=== PATIENT | female | born 1965 | race Caucasian/White ===

== ENCOUNTER 2018-05-20 08:37 | Day surgery (SDC) | payer OTHER ==
[~2018-05-20 08:37] MED LIST: HYDROmorphone 2 MG/ML VIAL IV PRN; IV RINGERS,LACTATED 1000ML 1,000 ML IV SCH; LIDOCAINE 1% PF 2 ML VIAL. ID PRN; MORPHINE SULFATE 2 MG/ML VIAL. IV PRN; ONDANSETRON PF 4 MG/2 ML VIAL. IV PRN; PROCHLORPERAZINE 10 MG/2 ML VIAL. IV PRN; TRAM50TA PO; fentaNYL PF VIAL 100 MCG/2 ML VIAL IV PRN
[2018-05-20] MEDS ORDERED: PROPOFOL 20 ML IV ONE (08:48)
[2018-05-20] MEDS ORDERED: ONDANSETRON PF 4 MG/2 ML VIAL. ONE (08:49)
[2018-05-20] MEDS ORDERED: LIDOCAINE 2% PF 5 ML VIAL. ONE (08:49)
[2018-05-20] MEDS ORDERED: fentaNYL PF VIAL 250 MCG/5 ML VIAL ONE (08:50)
[2018-05-20] MEDS ORDERED: MIDAZOLAM HCL/PF 2 MG/2 ML VIAL. ONE (08:50)
--- NOTE | 2018-05-20 10:27 | DISCH ---
DISCHARGE INSTRUCTIONS Condition on Discharge Condition on Discharge: Stable Activity After Discharge Activity Instructions for Disc: Activity as tolerated Weight Bearing Status after Di: As tolerated Diet after Discharge Diet after Discharge: Regular Wound Incision Care Wound/Incision Care: Ice to area for comfort, Change dressing (May remove dressing in 2 days may then shower no soaking until sutures removed) Contacting the DRRenaldo after DC Call your doctor for: Concerns you may have Follow-Up Follow up with: Kristin 10 days BONNIE SHORT MD May 20, 2018 10:27
[2018-05-20] MEDS ORDERED: HYDR-3165 PO (10:28)
[2018-05-20] MEDS ORDERED: BUPIVAC MPF-EPI 0.5%-1:200000 30 ML VIAL. ONE (10:37)
[2018-05-20] MEDS ORDERED: SEVOFLURANE 61 TO 120 MINUTES. IH ONE (11:27)
[2018-05-20] MEDS ORDERED: KETOROLAC 30 MG/ML INJ FOR OR. INJ ONE (11:29)
[2018-05-20] MEDS ORDERED: HYDROcodone/APAP 7.5/325MG 1 TAB TABLET PO ONE (12:15)
--- NOTE | 2018-05-20 12:22 | PDOC4 ---
Operative Note Operative Note Date of surgery: 05/20/2018 Preoperative diagnosis: Medial meniscus tear Postoperative diagnosis: Same with chondral flap tear medial femoral condyle and free edge fraying anterior horn and body lateral meniscus Operative procedure: Right knee arthroscopy partial medial meniscectomy partial lateral meniscectomy and chondroplasty of medial femoral condyle Surgeon: Kristin Anesthesia: Gen. Estimated blood loss: 5 mL Complications: None Operative indications: Patient is a 52-year-old female with pain intermittent but severe with aggravating activities such as twisting and squatting in particular MRI had shown medial meniscus tear consistent with clinical suspicion I had gone over with her the risks benefits postoperative course of possible operative treatment of this and the rationale for healing anatomy and blood supply of the medial meniscus the fact that I cannot do anything about her degenerative changes present and those ongoing symptoms would have to be dealt with symptomatically. All her questions were answered she wishes to proceed with surgical evaluation and treatment. Operative text: Patient was identified procedure verified patient placed in the supine position on operating table. After adequate amounts of general anesthesia were administered the right lower extremity was prepped and draped with a thigh tourniquet area after timeout was performed patient procedure identified and verified the right leg was examined by Esmarch bandage tourniquet inflated to 250 mmHg a lateral portal was established medial portal established using spinal needle localization and the knee joint was systematically examined. She was noted to have some patellofemoral chondromalacia that did not require debridement she had good tracking of the patellofemoral joint no loose bodies noted in the gutters or suprapatellar pouch she did have a displaceable tear posterior horn of the medial meniscus and a chondral flap tear of the weightbearing surface of the medial femoral condyle adjacent to the meniscal tear which was trimmed back to stable tissue with arthroscopic shaver. ACL was probed and found to be intact lateral meniscus had a small free edge tear which was trimmed back to stable tissue. The knee was again toured to ensure no loose cartilage present and was drained of arthroscopic fluid portals closed with nylon suture sterile dressings applied she was returned recovery room in stable condition having tolerated procedure well BONNIE SHORT MD May 20, 2018 12:22
[2018-05-20 12:33] VITALS: BP 115/62
== END 2018-05-20 12:33 | disposition home or self-care (01) ==
LOC: SURG 08:37
PROVIDERS: ATTEND Orthopaedic Surgery
DX: S83.241A Other tear of medial meniscus, current injury, right knee, initial encounter (principal); S83.281A Other tear of lateral meniscus, current injury, right knee, initial encounter; M22.41 Chondromalacia patellae, right knee; X50.1XXA Overexertion from prolonged static or awkward postures, initial encounter; Y93.89 Activity, other specified; Y92.89 Other specified places as the place of occurrence of the external cause; Y99.8 Other external cause status; Z79.899 Other long term (current) drug therapy
CPT/HCPCS: 29880; A7015; C1782; J0690; J1885; J2001; J2250; J2405; J2704; J3010; J3490

== ENCOUNTER → 2018-06-23 | Outpatient (CLI) | payer OTHER ==
[~2018-06-23] MED LIST changes: +HYDR-3165 PO; -HYDROmorphone 2 MG/ML VIAL IV PRN; -IV RINGERS,LACTATED 1000ML 1,000 ML IV SCH; -LIDOCAINE 1% PF 2 ML VIAL. ID PRN; -MORPHINE SULFATE 2 MG/ML VIAL. IV PRN; -ONDANSETRON PF 4 MG/2 ML VIAL. IV PRN; +OXYC1TAB15 PO; -PROCHLORPERAZINE 10 MG/2 ML VIAL. IV PRN; -fentaNYL PF VIAL 100 MCG/2 ML VIAL IV PRN
--- NOTE | 2018-06-23 09:45 | KCIC ---
MR left knee HISTORY: Lateral and posterior pain for 2 months. TECHNIQUE: Routine multiplanar sequences are obtained. FINDINGS: No evidence of medial or lateral meniscal tear. Anterior and posterior cruciate ligaments are intact. Medial collateral ligament intact. Iliotibial band unremarkable. Fibular collateral ligament, biceps femoris tendon and popliteus tendon are intact. Extensor mechanism is intact. Small joint effusion. Small Kumari's cyst. Rectangular loose body identified within the anterior knee just anterior to the distal ACL, measures 9 mm x 3 mm x 4 mm. Morphology suggests articular cartilage fragment. Moderate chondral thinning at the patellofemoral joint. Severe chondral thinning at the medial joint. Chondral heterogeneity at the medial aspect of the lateral tibial plateau. No definite well-defined acute articular cartilage defect to indicate a donor site is confirmed. No acute fracture or aggressive bone destruction. IMPRESSION: 1. Rectangular loose body just anterior to the distal ACL, likely an articular cartilage fragment. There is generalized primary osteoarthritis with cartilage loss, but a definite origin sites is difficult to determine. 2. No other internal derangement is seen. Electronically signed by: Matti Delgadillo MD (06/23/2018 9:41 AM) [id number]
== END | disposition home or self-care (01) ==
LOC: KCIC MRI 07:42
PROVIDERS: ATTEND Orthopaedic Surgery
DX: M17.12 Unilateral primary osteoarthritis, left knee (principal); M23.42 Loose body in knee, left knee; M25.462 Effusion, left knee; M71.22 Synovial cyst of popliteal space [Baker], left knee
CPT/HCPCS: 73721

== ENCOUNTER 2018-08-12 05:59 | Day surgery (SDC) | payer OTHER ==
[~2018-08-12 05:59] MED LIST changes: -OXYC1TAB15 PO
[2018-08-12] MEDS ORDERED: BUPIVAC MPF-EPI 0.5%-1:200000 30 ML VIAL. ONE (06:14)
[2018-08-12] MEDS ORDERED: TRAM50TA PO (06:35)
[2018-08-12] MEDS ORDERED: PROCHLORPERAZINE 10 MG/2 ML VIAL. IV PRN ×2 (07:00)
[2018-08-12] MEDS ORDERED: HYDROmorphone 2 MG/ML VIAL IV PRN ×2 (07:00)
[2018-08-12] MEDS ORDERED: ONDANSETRON PF 4 MG/2 ML VIAL. IV PRN ×2 (07:00)
[2018-08-12] MEDS ORDERED: IV RINGERS,LACTATED 1000ML 1,000 ML IV SCH ×2 (07:00)
[2018-08-12] MEDS ORDERED: MORPHINE SULFATE 2 MG/ML VIAL. IV PRN (07:00)
[2018-08-12] MEDS ORDERED: fentaNYL PF VIAL 100 MCG/2 ML VIAL IV PRN ×3 (07:00)
[2018-08-12] MEDS ORDERED: LIDOCAINE 1% PF 2 ML VIAL. ID PRN ×2 (07:00)
[2018-08-12] MEDS ORDERED: ONDANSETRON PF 4 MG/2 ML VIAL. ONE (07:42)
[2018-08-12] MEDS ORDERED: KETOROLAC 30 MG/ML INJ FOR OR. INJ ONE (07:42)
[2018-08-12] MEDS ORDERED: SEVOFLURANE 31 TO 60 MINUTES. IH ONE (07:42)
[2018-08-12] MEDS ORDERED: DEXAMETHASONE SOD PHOS 20 MG/5 ML VIAL. ONE (07:42)
[2018-08-12] MEDS ORDERED: PROPOFOL 20 ML IV ONE (07:42)
[2018-08-12] MEDS ORDERED: LIDOCAINE 2% PF 5 ML VIAL. ONE (07:42)
[2018-08-12] MEDS ORDERED: OXYC1TAB15 PO (08:32)
--- NOTE | 2018-08-12 08:40 | DISCH ---
DISCHARGE INSTRUCTIONS Condition on Discharge Condition on Discharge: Stable Activity After Discharge Activity Instructions for Disc: Activity as tolerated Weight Bearing Status after Di: As tolerated Diet after Discharge Diet after Discharge: Regular Wound Incision Care Wound/Incision Care: Ice to area for comfort, Change dressing (a remove dressing in 2 days may then shower) Contacting the DRRenaldo after DC Call your doctor for: Concerns you may have Follow-Up Follow up with: Kristin 1 week BONNIE SHORT MD Aug 12, 2018 08:40
[2018-08-12] MEDS: fentaNYL PF VIAL 100 MCG/2 ML VIAL IV PRN ×2 (08:51→09:15)
[2018-08-12] MEDS ORDERED: oxyCODONE/APAP 5/325 1 TAB TABLET ONE (08:58)
[2018-08-12] MEDS ORDERED: oxyCODONE/APAP 5/325 1 TAB TABLET PO ONE (09:00)
[2018-08-12] MEDS: MORPHINE SULFATE 2 MG/ML VIAL. IV PRN ×2 (09:32→09:42)
[2018-08-12 10:00] VITALS: BP 114/65
--- NOTE | 2018-08-12 10:25 | PDOC4 ---
Operative Note Operative Note Date of surgery: 08/12/2018 Preoperative diagnosis: Suspected loose body left knee Postoperative diagnosis: Posterior horn and root medial meniscus tear with extensive grade 3 chondromalacia weightbearing surface medial femoral condyle Operative procedure: Left knee arthroscopy partial medial meniscectomy chondroplasty medial femoral condyle Surgeon: Kristin Assist: Dhiraj Anesthesia: Gen. Estimated blood loss: 5 mL Complications: None Operative indications: Patient is a 53-year-old female that is very active complaining of left knee pain as detailed in my preoperative clinic notes. I had gone over with her the likely findings of loose body on MRI and that we would pursue this issue as well as any other pathologic conditions to the extent that are correctable. Of course I can't undo any degenerative changes present in the knee she is aware of the possibility of continued pain nerve or blood vessel damage medical or other anesthetic complications among others and wishes to proceed with surgical evaluation and treatment. Operative text: Patient was identified procedure verified patient placed in the supine position on the operating table. After adequate amounts of general anesthesia were administered the left lower extremity was prepped and draped in standard sterile fashion with a thigh tourniquet. After timeout was performed patient procedure identified and verified the left lower extremity was exsanguinated by Esmarch bandage tourniquet inflated to 250 mmHg a lateral portal was established a medial portal established using spinal needle localization and the knee joint was systematically examined. She was noted to have significant chondromalacia of the patella and trochlear groove not requirin g debridement. No loose bodies were noted in the gutters or suprapatellar pouch area or in the area immediately in front of the anterior cruciate ligament where there was originally some suspicion on the MRI. She was however found to have a large displaceable tear of the posterior root area of the medial meniscus which was trimmed back to stable tissue and had instability and fraying of the free edge of the posterior horn medial meniscus extending around to the body insertion area. She had significant chondromalacia of the weightbearing surface of medial femoral condyle which was lightly debrided back to stable tissue with shaver no full-thickness defects were noted. Lateral meniscus was probed and found to be intact no loose bodies in the medial or lateral compartment scope was placed posteriorly to rule out any loose bodies in the posterior compartment. The ACL insertion was thoroughly probed as this was an area of possible calcification but the ACL itself was not debrided as it would potentially have destabilized the tibial insertion. The knee was again toured to ensure no loose bodies present and drained of arthroscopic fluid fat pad and portal areas were infused with half percent plain Marcaine portals closed with nylon suture sterile dressings were applied patient was returned to recovery room in stable condition having tolerated procedure well BONNIE SHORT MD Aug 12, 2018 10:25
== END 2018-08-12 10:03 | disposition home or self-care (01) ==
LOC: SURG 05:59
PROVIDERS: ATTEND Orthopaedic Surgery
DX: S83.242A Other tear of medial meniscus, current injury, left knee, initial encounter (principal); M94.262 Chondromalacia, left knee; Z90.49 Acquired absence of other specified parts of digestive tract; Z98.890 Other specified postprocedural states; Z87.891 Personal history of nicotine dependence; Z79.899 Other long term (current) drug therapy; X58.XXXA Exposure to other specified factors, initial encounter; Y93.89 Activity, other specified; Y92.89 Other specified places as the place of occurrence of the external cause; Y99.8 Other external cause status
CPT/HCPCS: 29881; A7015; J0690; J0780; J1100; J1885; J2001; J2270; J2405; J2704; J3010; J3490

== ENCOUNTER → 2018-10-30 | Outpatient (CLI) | payer OTHER ==
[~2018-10-30] MED LIST changes: +OXYC1TAB15 PO
--- NOTE | 2018-10-30 10:24 | KCIC ---
MR of the right knee HISTORY: Right knee pain posteriorly. Crepitus. Previous surgery. TECHNIQUE: Routine multiplanar sequences are obtained. FINDINGS: Degenerative tear of the medial meniscus. Medial meniscus is subluxed medially, out of the joint compartment. No evidence of lateral meniscal tear. The anterior and posterior cruciate ligaments are intact. Medial collateral ligament is intact. Iliotibial band unremarkable. Fibular collateral ligament, biceps femoris tendon and popliteus tendon are intact. The extensor mechanism is intact. Moderate joint effusion. Severe chondral loss at the patellofemoral joint and medial joint with subchondral bone exposure and subchondral edema. Mild chondromalacia at the lateral joint compartment. No bone destruction. No acute fracture. There is a cystic lesion along the posterior medial femoral condyle and posterior intercondylar notch likely a ganglion cyst. IMPRESSION: 1. Medial meniscal degenerative tear, with medial subluxation out of the joint. 2. Severe primary osteoarthritis. Electronically signed by: Matti Delgadillo MD (10/30/2018 10:21 AM) [id number]
== END | disposition home or self-care (01) ==
LOC: KCIC MRI 07:42
PROVIDERS: ATTEND Orthopaedic Surgery
DX: S83.242A Other tear of medial meniscus, current injury, left knee, initial encounter (principal); M94.261 Chondromalacia, right knee; M17.11 Unilateral primary osteoarthritis, right knee; M25.461 Effusion, right knee; X58.XXXA Exposure to other specified factors, initial encounter; Y93.89 Activity, other specified; Y92.89 Other specified places as the place of occurrence of the external cause; Y99.8 Other external cause status
CPT/HCPCS: 73721

== ENCOUNTER → 2018-12-02 | Outpatient (CLI) | payer OTHER ==
[~2018-12-02] MED LIST changes: +IBUP-1027 PO; +MILK150C2 PO; +MULT1CAP15 PO; +POME1CAP PO; +TURM538C PO; +WHEAT GRASS PO; +[UNRECOGNIZED DRUG - OTHER] PO
[2018-12-02 09:57] LABS: BASO # 0.1 x10^3/uL (0.0-0.2); BASO % 1 % (0-3); EOS # 0.3 x10^3/uL (0.0-0.7); EOS % 6 % (0-3); HEMATOCRIT 41.2 % (36.0-47.0); HEMOGLOBIN 14.1 g/dL (12.0-15.5); LYMPH # 1.9 x10^3/uL (1.0-4.8); LYMPH % 31 % (24-48); MEAN CORPUSCULAR HEMOGLOBIN 28 pg (25-35); MEAN CORPUSCULAR HGB CONC 34 g/dL (31-37); MEAN CORPUSCULAR VOLUME 82 fL (79-100); MONO # 0.7 x10^3/uL (0.0-1.1); MONO % 11 % (0-9); NEUT % 51 % (31-73); PLATELET COUNT 265 x10^3/uL (140-400); RED CELL DISTRIBUTION WIDTH 13.9 % (11.5-14.5); WHITE BLOOD COUNT 5.9 x10^3/uL (4.0-11.0)
--- NOTE | 2018-12-02 09:57 | EKG ---
[facility] [address] [place] [address] Test Date: 2018-12-02 Test Time: 10:00:16 Pat Name: LAZARO FOWLER Department: Room: Gender: F Keg Filler: ROB : 1965 Requested By: BONNIE SHORT Order Number: [id number] Reading MD: Reji Hernandez Measurements Intervals [place] Rate: 73 P: 129 TX: 164 QRS: 155 QRSD: 76 T: 138 QT: 380 QTc: 422 Interpretive Statements SINUS RHYTHM QRS(T) CONTOUR ABNORMALITY CONSISTENT WITH HIGH LATERAL INFARCT AGE UNDETERMINED ABNORMAL ECG RI6.01 No previous ECG available for comparison Electronically Signed On 12-05-2018 12:21:12 CDT by Reji Hernandez
[2018-12-02 10:05] LABS: ALBUMIN 3.9 g/dL (3.4-5.0); CALCIUM 9.4 mg/dL (8.5-10.1); CREATININE 0.7 mg/dL (0.6-1.0); GFR 87.2; POTASSIUM 3.8 mmol/L (3.5-5.1)
[2018-12-02 10:12] LABS: PROTHROMBIN TIME PATIENT 11.4 SEC (11.7-14.0)
[2018-12-02 10:41] LABS: BILIRUBIN,URINE NEGATIVE (NEG); CLARITY,URINE CLEAR; COLOR,URINE YELLOW; NITRITE,URINE NEGATIVE (NEG); PROTEIN,URINE NEGATIVE (NEG-TRACE); UROBILINOGEN,URINE 0.2 mg/dL (0.2 mg/dL)
[2018-12-02 11:00] LABS: BACTERIA,URINE FEW /HPF (0-FEW); RBC,URINE 0 /HPF (0-2); SQUAMOUS EPITHELIAL CELL,UR FEW /LPF; WBC,URINE OCC /HPF (0-4)
--- NOTE | 2018-12-02 12:54 | RAD ---
PA and lateral views of the chest. Comparison: None. Indication: Preop degenerative joint disease Findings: The heart size is at the upper limits of normal. No pneumothorax or effusion. No air space or interstitial disease. The bony structures are intact. Impression: 1. No acute cardiopulmonary process. Electronically signed by: Asher Rooney MD (12/02/2018 12:51 PM) [facility]
== END | disposition home or self-care (01) ==
LOC: SURGPAT 08:58
PROVIDERS: ATTEND Orthopaedic Surgery
DX: Z01.818 Encounter for other preprocedural examination (principal); M17.11 Unilateral primary osteoarthritis, right knee; R94.31 Abnormal electrocardiogram [ECG] [EKG]
CPT/HCPCS: 36415; 71046; 80048; 81001; 82040; 82306; 85025; 85610; 85651; 85730; 87641; 93005

== ENCOUNTER 2018-12-09 07:59 | Inpatient (IN) | payer OTHER ==
[2018-12-09] VITALS (7 sets, daily range): BP systolic 119–141; BP diastolic 72–83
[~2018-12-09] VITALS: Ht 162.6 cm; Wt 74.4 kg
[~2018-12-09 07:59] MED LIST changes: +HYDROcodone/APAP 7.5/325MG 1 TAB TABLET PO PRN; +HYDROmorphone 2 MG/ML VIAL IV PRN; +IV RINGERS,LACTATED 1000ML 1,000 ML IV SCH; +MORPHINE SULFATE 2 MG/ML VIAL. IV PRN; +MORPHINE SULFATE 5 MG, KETOROLAC 30MG VIAL 30 MG, ROPIVacaine 0.5% PF 60 ML, EPINEPHrin... INT ART ONE; +ONDANSETRON PF 4 MG/2 ML VIAL. IV PRN; +PROCHLORPERAZINE 10 MG/2 ML VIAL. IV PRN; +TRANEXAMIC ACID 1,000 MG in IV NS 50ML -- 1ST BAG INJ ONE; +fentaNYL PF VIAL 100 MCG/2 ML VIAL IV PRN
[2018-12-09] MEDS ORDERED: TRANEXAMIC ACID 1,000 MG in IV NS 50ML -- 2ND BAG INJ ONE (08:00)
[2018-12-09 08:54] LABS: PROTHROMBIN TIME PATIENT 11.9 SEC (11.7-14.0)
[2018-12-09] MEDS ORDERED: PROPOFOL 20 ML IV ONE (11:05)
[2018-12-09] MEDS ORDERED: LIDOCAINE 2% PF 5 ML VIAL. ONE (11:05)
[2018-12-09] MEDS ORDERED: ONDANSETRON PF 4 MG/2 ML VIAL. ONE (11:05)
[2018-12-09] MEDS ORDERED: MIDAZOLAM HCL/PF 2 MG/2 ML VIAL. ONE (11:05)
[2018-12-09] MEDS ORDERED: fentaNYL PF VIAL 100 MCG/2 ML VIAL ONE ×3 (11:05→13:38)
[2018-12-09] MEDS ORDERED: DEXAMETHASONE SOD PHOS 4 MG/ML VIAL ONE (11:05)
[2018-12-09] MEDS ORDERED: SEVOFLURANE 61 TO 120 MINUTES. IH ONE (11:33)
[2018-12-09] MEDS ORDERED: KETOROLAC 30 MG/ML INJ FOR OR. INJ ONE (11:36)
[2018-12-09] MEDS ORDERED: PROCHLORPERAZINE 10 MG/2 ML VIAL. ONE (13:38)
[2018-12-09] MEDS ORDERED: fentaNYL PF VIAL 100 MCG/2 ML VIAL IV PRN (14:15)
[2018-12-09] MEDS ORDERED: IV DEXTROSE 5% 250 ML BAG. IV PRN (14:15)
[2018-12-09] MEDS ORDERED: diphenhydrAMINE 50 MG/ML VIAL IV PRN (14:15)
[2018-12-09] MEDS ORDERED: DEXTROSE 50% 25 GM / 50ML DISP.SYRIN. IV PRN (14:15)
[2018-12-09] MEDS ORDERED: 0.9 % SODIUM CHLORIDE 10 ML DISP.SYRIN. IV PRN (14:15)
--- NOTE | 2018-12-09 14:26 | PDOC4 ---
Operative Note Operative Note Date of surgery: 12/09/2018 Preoperative diagnosis: Right knee medial compartment degenerative disease Postoperative diagnosis: Same with intact lateral compartment and anterior cruciate ligament and moderate patellofemoral chondromalacia Operative procedure: Right [place] unicondylar medial compartment knee arthroplasty allograft surgeon: Kristin Muniz.: Bubba Hearn Anesthesia: Gen. Estimated blood loss: 10 mL Complications: None Operative indications: Rowan is a 53-year-old female who underwent previous knee arthroscopy and subsequent injections with only partial and inadequate relief and was noted to have a significant component of medial compartment degenerative change with a well-preserved ACL and lateral compartment that was having severe ongoing limiting pain. Please see my clinic and preoperative note for detailed operative indications and note that we had talked about possibility of infection continued pain instability wear of the lateral compartment or ligaments insufficiency that could result in the eventual failure of this approach all her questions were answered she wishes to proceed with surgical evaluation and treatment with joint center admission to follow. Operative text: Patient was identified procedure verified patient placed in the supine position on the operating table. After adequate amounts of general anesthesia were administered the right lower extremity was prepped and draped in standard sterile fashion with a thigh tourniquet. After timeout was performed patient procedure identified and verified the right lower extremity was exsanguinated by Esmarch bandage tourniquet inflated to 300 mmHg an incision was made longitudinally just medial to midline with medial parapatellar approach carried out and initial sizing for the [place] implant noted a small size of the femoral condyle. Tibial cut was made with the extra medullary cutting jig and a vertical cut made just medial to the intercondylar eminence following confirmation that the anterior cruciate ligament and lateral compartment cartilage were indeed intact. Tibial cut was then made and a size C tibial component selected. The center of the medial femoral condyle was marked with electrocautery and intramedullary guide was placed and component was drilled and distal reaming was initially carried out. Initially to obtained ligament balance and additional 2 mm were reamed distally and I carried out additional reaming to achieve perfect flexion and extension balance of an additional 1 mm distally trial fitting with a 4 mm polyethylene spacer size C tibial component and a size small femoral component were carried out and showed excellent range of motion ligament balance. Trial components were removed and the tibia was prepared for the keel and thorough irrigation carried out normal saline solution. The following components were then cemented in place with polymethylmethacrylate cement a size C cemented [place] tibia a size small femoral component and a 4 mm spacer once components were impacted and excess cement was removed. Again excellent balance was noted and a 4 mm polyethylene spacer corresponding to the small femur was placed and excellent stability full range of motion tracking were all noted again thorough irrigation carried out normal saline solution retinaculum was closed with Ethibond suture subcutaneous closure with buried Vicryl suture subcuticular Monocryl sterile haritha dressing was placed patient was returned recovery room in stable condition having tolerated procedure well with toes were warm and pink following deflation of the tourniquet after total tourniquet time approximately an hour and 15 minutes BONNIE SHORT MD Dec 09, 2018 14:26
--- NOTE | 2018-12-09 14:30 | NUR ---
Arrived to unit by bed from PACU. Alert and oriented x's 4. Right leg elevated on pillow and has ice pack. Right knee dressing is d/i with GAMAL. Able to wiggle toes easily, warm touch and pedal pulses +. ROXANNE and SCD on left leg and TATIANA on right foot. IVF's intact and infusing. Oriented to room and controls. Side rails up x's 2 with call light in reach. Spouse at bedside. Cont. monitor.
--- NOTE | 2018-12-09 14:40 | RAD ---
KNEE RIGHT 2V History: Interval right knee hemiarthroplasty. Technique: 2 views right knee Comparison: MRI right knee October 30, 2018. Radiographs right knee February 24, 2018 Findings: Interval right medial compartment hemiarthroplasty with expected postoperative finding subcutaneous and intra-articular gas. Normal limit. No fracture. Mild lateral and patellofemoral compartment DJD. Impression: 1. Interval right medial compartment knee hemiarthroplasty. No immediate hardware complications. Electronically signed by: Jayce Candelaria DO (12/09/2018 2:37 PM) [id number]
[2018-12-09] MEDS: MORPHINE SULFATE 2 MG/ML VIAL. IV PRN ×2 (14:46→18:26)
--- NOTE | 2018-12-09 14:51 | HP ---
ADMIT DATE: 12/09/2018 CHIEF COMPLAINT: Right knee pain. HISTORY OF PRESENT ILLNESS: The patient was previously seen in the clinic with severe sharp medial compartment right knee pain unresponsive to viscosupplementation and limited relief from previous arthroscopy. PAST SURGICAL HISTORY: Significant for right knee surgery, appendectomy, cholecystectomy and two C-sections. FAMILY HISTORY: Mother is alive. Father . SOCIAL HISTORY: Former smoker. Denies alcohol or drug use. MEDICATIONS: List is reviewed. ALLERGIES: She has no known drug allergies. REVIEW OF SYSTEMS: Today, no recent fever, chills, chest pain, shortness of breath, focal weakness, numbness, tingling or other constitutional symptoms. PHYSICAL EXAMINATION: VITAL SIGNS: Per her admission sheet. HEENT: Atraumatic, normocephalic. HEART: Regular rate and rhythm. LUNGS: Clear to auscultation bilaterally. ABDOMEN: Benign. EXTREMITIES: Examination of the right knee reveals primarily medial joint line tenderness, no gross ligamentous instability. Slight patellofemoral crepitus and full motion of both knees, normal alignment of bilateral hips and ankles. Previous MRI of the right knee showed significant degenerative change in the medial compartment intact. Lateral compartment and ACL, moderate chondromalacia of the patella. IMPRESSION: Medial compartment osteoarthritis, right knee. TREATMENT PLAN: We had previously discussed in clinic risks, benefits, postoperative course of unicondylar arthroplasty and that she is a good candidate for this based on her ongoing symptoms and poor responsiveness to previous knee arthroscopy and other injections and good ligamentous stability and relative preservation of the lateral compartment. We talked through the possibility of continued pain, possibility of loosening, nerve root, blood vessel damage, medical or other anesthetic complications among others. All her questions were answered and she wishes to proceed with surgical evaluation and treatment, which will include Joint Center admission to follow. BONNIE SHORT MD DR: ANNETTE/nicole JOB#: [id number] / [id number]
[2018-12-09] MEDS ORDERED: IV NORMAL SALINE 1000ML BAG 1,000 ML IV SCH (15:00)
[2018-12-09] MEDS: oxyCODONE IR 5 MG TABLET PO PRN ×2 (16:13→20:18)
[2018-12-09] MEDS: FERROUS SULFATE 325 MG TABLET. PO SCH (16:13)
[2018-12-09] MEDS: RIVAROXABAN 10 MG TABLET. PO SCH (16:14)
[2018-12-09] MEDS: ceFAZolin SODIUM IV Push 1 GM VIAL. IVP SCH ×2 (16:17→22:57)
[2018-12-09] MEDS: ONDANSETRON PF 4 MG/2 ML VIAL. IV SCH (17:54)
[2018-12-09] MEDS: ONDANSETRON ODT 4 MG TAB.RAPDIS. PO SCH (17:54)
--- NOTE | 2018-12-09 17:54 | NUR ---
Zofran po & IV held, no nausea or vomiting noted
[2018-12-09] MEDS: PROCHLORPERAZINE 5 MG TABLET. PO PRN (19:13)
[2018-12-09] MEDS: ZOLPIDEM 5 MG TABLET. PO PRN (23:14)
[2018-12-09] MEDS: CALCIUM CARBONATE 500 MG TAB.CHEW PO PRN (23:14)
[2018-12-10] MEDS: oxyCODONE IR 5 MG TABLET PO PRN ×5 (00:54→20:34)
[2018-12-10 03:12] VITALS: BP 107/74
[2018-12-10] MEDS: ceFAZolin SODIUM IV Push 1 GM VIAL. IVP SCH (05:00)
[2018-12-10] MEDS: CALCIUM CARBONATE 500 MG TAB.CHEW PO PRN (05:48)
[2018-12-10] MEDS: ONDANSETRON PF 4 MG/2 ML VIAL. IV SCH ×3 (06:00→12:00)
[2018-12-10] MEDS ORDERED: MAGNESIUM HYDROXIDE 2,400 MG/30 ML ORAL.SUSP. PO PRN (06:00)
[2018-12-10] MEDS: GABAPENTIN 100 MG CAPSULE. PO SCH ×3 (06:00→22:08)
[2018-12-10] MEDS: ONDANSETRON ODT 4 MG TAB.RAPDIS. PO SCH ×3 (06:00→07:22)
[2018-12-10] MEDS: traMADol 50 MG TABLET PO SCH ×3 (06:00→17:48)
[2018-12-10 06:25] VITALS: BP 130/81
--- NOTE | 2018-12-10 07:17 | PDOC ---
ORTHO PROGRESS NOTES Subjective Patient complaining of pain but was sleeping upon entering room. Post-op Day: 1 Procedure R Unicondylar Arthroplasty Vitals Vital Signs Date Time Temp Pulse Resp B/P (MAP) Pulse Ox O2 Delivery O2 Flow Rate FiO2 12/10/18 06:48 20 Room Air 12/10/18 06:25 98.3 91 130/81 (97) 97 98.3 12/09/18 14:46 2.0 Labs Laboratory Tests Test 12/09/18 08:30 Prothrombin Time 11.9 SEC (11.7-14.0) Prothromb Time International Ratio 0.9 (0.8-1.1) Activated Partial Thromboplast Time 27 SEC (24-38) Laboratory Tests Test 12/09/18 08:30 Prothrombin Time 11.9 SEC (11.7-14.0) Prothromb Time International Ratio 0.9 (0.8-1.1) Activated Partial Thromboplast Time 27 SEC (24-38) Assessment and Plan POD # 1 S/P Right Knee Unicondylar Arthroplasty motor and sensory intact distally dressing dry and intact moving toes and feet on request PT today INDIO URRUTIA APRN Dec 10, 2018 07:17
[2018-12-10] MEDS: FERROUS SULFATE 325 MG TABLET. PO SCH ×2 (08:25→17:48)
[2018-12-10] MEDS: SENNOSIDES/DOCUSATE 8.6/50MG TABLET. PO SCH (08:25)
[2018-12-10] MEDS: ACETAMINOPHEN 500 MG TABLET PO SCH ×3 (08:25→20:34)
[2018-12-10] MEDS: MULTIVITAMIN with MINERAL TABLET. PO SCH (08:25)
[2018-12-10] MEDS: MELOXICAM 7.5 MG TABLET PO SCH (08:25)
[2018-12-10] MEDS: MORPHINE SULFATE 2 MG/ML VIAL. IV PRN ×2 (08:30→12:07)
[2018-12-10] MEDS: PROCHLORPERAZINE 5 MG TABLET. PO PRN (11:21)
[2018-12-10] MEDS ORDERED: ONDANSETRON PF 4 MG/2 ML VIAL. IV PRN (12:00)
--- NOTE | 2018-12-10 12:10 | NUR ---
Sitting on edge of bed crying c/o pain on right knee and unable to sleep. States pain at a "10". Morphine IV given. Assisted pt to bathroom and return to bed.
[2018-12-10] MEDS ORDERED: CYCLOBENZAPRINE 10 MG TABLET. PO PRN (14:45)
[2018-12-10] MEDS: KETOROLAC TROMETHAMINE 10 MG TABLET PO PRN (15:10)
[2018-12-10] MEDS ORDERED: BISACODYL 10 MG SUPP.RECT. PR PRN (16:00)
--- NOTE | 2018-12-10 17:30 | NUR ---
Rounded on pt, asleep with eyes closed and snoring. Pt awakened. Asked pain level states "9". Ambulated to bathroom and return to bed. Scheduled meds given. Cont. monitor.
[2018-12-10] MEDS: RIVAROXABAN 10 MG TABLET. PO SCH (17:48)
[2018-12-10 18:51] VITALS: BP 114/68
[2018-12-10] MEDS: ZOLPIDEM 5 MG TABLET. PO PRN (22:08)
[2018-12-11] MEDS: traMADol 50 MG TABLET PO SCH ×3 (00:17→11:29)
[2018-12-11] MEDS: ACETAMINOPHEN 500 MG TABLET PO SCH ×3 (02:35→14:19)
[2018-12-11] MEDS: oxyCODONE IR 5 MG TABLET PO PRN ×4 (02:36→16:03)
[2018-12-11] MEDS: GABAPENTIN 100 MG CAPSULE. PO SCH ×2 (06:09→14:43)
[2018-12-11] MEDS: ONDANSETRON ODT 4 MG TAB.RAPDIS. PO PRN ×2 (06:13→11:29)
[2018-12-11 06:51] VITALS: BP 126/85
[2018-12-11] MEDS ORDERED: POLYETHYLENE GLYCOL 3350 17 GM PACKET. PO PRN (07:30)
[2018-12-11] MEDS: MELOXICAM 7.5 MG TABLET PO SCH (07:38)
[2018-12-11] MEDS: FERROUS SULFATE 325 MG TABLET. PO SCH ×2 (07:38→16:03)
[2018-12-11] MEDS: SENNOSIDES/DOCUSATE 8.6/50MG TABLET. PO SCH (07:38)
[2018-12-11] MEDS: MULTIVITAMIN with MINERAL TABLET. PO SCH (07:39)
--- NOTE | 2018-12-11 08:00 | DISCH ---
DISCHARGE INSTRUCTIONS Condition on Discharge Condition on Discharge: Stable Activity After Discharge Activity Instructions for Disc: Activity as tolerated Bathing Instructions: Shower-keep dressing dry Weight Bearing Status after Di: As tolerated Diet after Discharge Diet after Discharge: Regular Wound Incision Care Wound/Incision Care: Ice to area for comfort, Change dressing Contacting the DRRenaldo after DC Call your doctor for: Concerns you may have Follow-Up Follow up with: Kristin in 2 wks KUSHAL JACK II, MD Dec 11, 2018 08:00
[2018-12-11] MEDS: CALCIUM CARBONATE 500 MG TAB.CHEW PO PRN (08:49)
[2018-12-11] MEDS ORDERED: RIVA10TA PO (09:10)
[2018-12-11] MEDS ORDERED: TRAM50TA PO (09:11)
[2018-12-11] MEDS ORDERED: OXYC1TAB15 PO (09:12)
[2018-12-11] MEDS: KETOROLAC TROMETHAMINE 10 MG TABLET PO PRN (09:22)
--- NOTE | 2018-12-11 09:30 | PDOC ---
ORTHO PROGRESS NOTES Subjective Her pain is tolerable on the current regimen. She feels like she is doing well today Vitals Vital Signs Date Time Temp Pulse Resp B/P (MAP) Pulse Ox O2 Delivery O2 Flow Rate FiO2 12/11/18 07:39 20 Room Air 12/11/18 07:15 2.0 12/11/18 06:51 98.2 95 126/85 (99) 94 98.2 Notes She is awake and alert in bed. Small amount of dried drainage at her incisional wound VAC is present. Normal motor and sensation are present distally in her right lower extremity Assessment and Plan We will have her dressing change. She can be discharged home today. She'll follow up with Dr. Foster in 2 weeks, sooner should a problem arise. KUSHAL JACK II, MD Dec 11, 2018 09:30
--- NOTE | 2018-12-11 09:32 | PDOC3 ---
Discharge Summary Visit Information Date of Admission: Dec 09, 2018 Date of Discharge: Dec 11, 2018 Admitting Diagnosis: right knee degenerative joint disease, primary Brief Hospital Course Allergies Allergies Coded Allergies Type Severity Reaction Last Updated Verified No Known Drug Allergies 08/12/18 No Vital Signs Vital Signs Date Time Temp Pulse Resp B/P (MAP) Pulse Ox O2 Delivery O2 Flow Rate FiO2 12/11/18 07:39 20 Room Air 12/11/18 07:15 2.0 12/11/18 06:51 98.2 95 126/85 (99) 94 98.2 Brief Hospital Course Ms. Lazar is a 53 old female with right knee pain attributable to her clinical and radiographically proven arthritis. Dr. Foster had a discussion of the risks, benefits, and alternatives to surgery and performed a unicompartmental arthroplasty. Patient recovered well from anesthesia and was [facility] for [facility] as well as observation. She received IV pain medicine initially, prior to discharge her pain was controlled with oral pain medicine. She recovered well from surgery otherwise. Her hospital course was essentially uneventful. She was hemodynamically stable and afebrile. Normal bowel and bladder function. She is maintaining her ADLs well. She will receive PT and OT well inpatient. She was on anticoagulation as well. Discharge Information Condition at Discharge: Stable Follow Up: Weeks Disposition/Orders: D/C to Home Scheduled Multivitamin (Multivitamins) 1 Each Capsule, 2 CAP PO DAILY for vitamin, (Reported) Entered as Reported by: GABBI FUENTES on 12/02/18917 Last Taken: Unknown Dose on 12/01/18 Last Action: Reviewed on 12/09/18827 by GABBI FUENTES Rivaroxaban (Xarelto) 10 Mg Tablet, 1 TAB PO DAILYWSUP for blood thinner, #30 Ref 0 (Reported) Entered as Reported by: AYSHA ELIZONDO on 12/11/18909 Scheduled PRN Ibuprofen (Ibuprofen) 400 Mg Tablet, 200 MG PO BID PRN for INFLAMMATION, (Reported) Entered as Reported by: GABBI FUENTES on 12/02/18915 Last Taken: Unknown Dose on 12/01/18 Last Action: Reviewed on 12/09/18827 by GABBI FUENTES Oxycodone/Apap 5-325 (Percocet 5-325 Mg Tablet ) 1 Each Tablet, 1 TAB PO PRN Q3HRS PRN for PAIN, #50 Ref 0 (Reported) Entered as Reported by: AYSHA ELIZONDO on 12/11/1812 Tramadol Hcl (Tramadol Hcl) 50 Mg Tablet, 50 MG PO Q6HRS PRN for PAIN, #40 Ref 0 (Reported) Entered as Reported by: AYSHA ELIZONDO on 12/11/18910 Discontinued Medications Milk Thistle (Milk Thistle) 150 Mg Capsule, 150 MG PO DAILY for supplement, (Reported) Entered as Reported by: GABBI FUENTES on 12/02/18917 Last Taken: Unknown Dose on 12/01/18 Last Action: Reviewed on 12/09/18827 by GABBI FUENTES Pomegrnt/Green T/Grape/Bilbery (Pomegranate-Egcg & Grape Seed) 1 Each Capsule, 1 EACH PO DAILY for supplement, (Reported) Entered as Reported by: GABBI FUENTES on 12/02/18925 Last Taken: Unknown Dose on 12/01/18 Last Action: Reviewed on 12/09/18827 by GABBI FUENTES Turmeric Root Extract (Turmeric) 538 Mg Capsule, 538 MG PO DAILY for inflammat ion, (Reported) Entered as Reported by: GABBI FUENTES on 12/02/18924 Last Taken: Unknown Dose on 12/01/18 Last Action: Reviewed on 12/09/18827 by GABBI FUENTES [dandelion] , 1 EACH PO BID for supplement, (Reported) Entered as Reported by: GABBI FUENTES on 12/02/18921 Last Taken: Unknown Dose on 12/01/18 Last Action: Reviewed on 12/09/18827 by GABBI FUENTES [wheat grass] , EACH PO DAILY for supplement, (Reported) Entered as Reported by: GABBI FUENTES on 12/02/18922 Last Taken: Unknown Dose on 12/01/18 Last Action: Reviewed on 12/09/18827 by GABBI FUENTES Patient Instructions Patient Instructions She can be discharged home. She will receive PT as an outpatient. She will be on anticoagulation for 1 month. She will follow up with Dr. Foster in 2 weeks, so galina should a problem arise. Worrisome signs and symptoms that should prompt a phone call to our office were discussed with her and her questions were answered. KUSHAL JACK II, MD Dec 11, 2018 09:32
--- NOTE | 2018-12-11 09:45 | NUR ---
states pain is better today. she is rating it between 7-9. original surgical dressing removed and replaced ; reconnected to [facility]. instructed on care for taking shower and next Saturday to remove battery pack. verbalized understanding. complaining of constipation; miralax given; will give 2 doses today. instructed to remove Tyrone hose off at bedtime and replace in am after am care completed or vice versa. she states that she is going outpatient; he can get off work early and take her.
[2018-12-11 15:02] VITALS: BP 105/80
--- NOTE | 2018-12-11 15:13 | NUR ---
reviewed written discharge instructions with patient. reviewed medications and side effects. restrictions to activities of daily living such as catalina hose and ice packs bathing. [facility] care instructions given; verbalized understanding . follow up appt with outpatient therapy and Dr. Foster given. if needed to change number given.
[2018-12-11] MEDS: RIVAROXABAN 10 MG TABLET. PO SCH (16:03)
--- NOTE | 2018-12-11 16:39 | NUR ---
dismissed to home with scripts walker personal belongings and .
== END 2018-12-11 16:30 | disposition home or self-care (01) | DRG 470 ==
LOC: OPSVCIP 07:59 → 4 SOUTHEST 14:33
PROVIDERS: ADMIT Orthopaedic Surgery; ATTEND Orthopaedic Surgery
PROC: 0SRC0L9 Replacement of Right Knee Joint with Medial Unicondylar Synthetic Substitute, Cemented, Open Approach (ICD-10-PCS; principal; 2018-12-09 12:00)
DX: M17.11 Unilateral primary osteoarthritis, right knee (principal); Z87.891 Personal history of nicotine dependence; M22.41 Chondromalacia patellae, right knee; Z90.49 Acquired absence of other specified parts of digestive tract
CPT/HCPCS: 36415; 73560; 85610; 85730; 86850; 86900; 86901; A7015; C1713; J0171; J0690; J0696; J0780; J1100; J1885; J2001; J2250; J2270; J2405; J2704; J2795; J3010; J7120; Q0162; Q0164; 97110; 97116; 97150; 97530; 97535; C1769; G0378

== ENCOUNTER 2020-01-26 06:02 | Emergency (ER) | payer OTHER ==
[~2020-01-26] VITALS: Ht 162.6 cm; Wt 69.5 kg
[~2020-01-26 06:02] MED LIST changes: -HYDROcodone/APAP 7.5/325MG 1 TAB TABLET PO PRN; -HYDROmorphone 2 MG/ML VIAL IV PRN; -IV RINGERS,LACTATED 1000ML 1,000 ML IV SCH; -MORPHINE SULFATE 2 MG/ML VIAL. IV PRN; -MORPHINE SULFATE 5 MG, KETOROLAC 30MG VIAL 30 MG, ROPIVacaine 0.5% PF 60 ML, EPINEPHrin... INT ART ONE; -ONDANSETRON PF 4 MG/2 ML VIAL. IV PRN; -PROCHLORPERAZINE 10 MG/2 ML VIAL. IV PRN; +RIVA10TA PO; -TRANEXAMIC ACID 1,000 MG in IV NS 50ML -- 1ST BAG INJ ONE; -fentaNYL PF VIAL 100 MCG/2 ML VIAL IV PRN
[2020-01-26] MEDS ORDERED: FAMOTIDINE 20 MG/2 ML VIAL IVP ONE (06:45)
[2020-01-26] MEDS ORDERED: LIDO:MAALOX 1:1 20 ML SINGLE DOSE. SWSW ONE (06:45)
[2020-01-26] MEDS ORDERED: ONDANSETRON PF 4 MG/2 ML VIAL. IVP ONE (06:45)
[2020-01-26] MEDS ORDERED: MORPHINE SULFATE 4 MG/ML VIAL. IV ONE (06:45)
--- NOTE | 2020-01-26 06:52 | PHYS DOC ---
Past Medical History Past Medical History: Other Additional Past Medical Histor: Ulcers, ADHD Past Surgical History: Appendectomy, Cholecystectomy, Other Additional Past Surgical Histo: Knee Smoking Status: Never Smoker Alcohol Use: Occasionally General Adult EDM: Chief Complaint: ABDOMINAL PAIN HPI: HPI: Patient is a 54 year old female who presented to ER today for evaluation of epigastric abdominal pain and right upper quadrant abdominal pain since last month. Patient was seen by her family physician, had a CT scan her abdomen pelvis done at an outpatient show some cysts in her liver. Patient could not sleep last night due to the pain. Patient has been taking ibuprofen for the pain but not getting better. Patient said whenever she in pain her blood pressure is elevated. Patient denies any blood in her stool, no dark stool, no vomiting blood. Patient denies any chest pain, no trouble breathing. Patient denies any cough or fever. Review of Systems: Review of Systems: Constitutional: Denies fever or chills. [] Eyes: Denies change in visual acuity. [] HENT: Denies nasal congestion or sore throat. [] Respiratory: Denies cough or shortness of breath. [] Cardiovascular: Denies chest pain or edema. [] GI: Positive for abdominal pain with nausea vomiting : Denies dysuria. [] Musculoskeletal: Denies back pain or joint pain. [] Integument: Denies rash. [] Neurologic: Denies headache, focal weakness or sensory changes. [] Endocrine: Denies polyuria or polydipsia. [] Lymphatic: Denies swollen glands. [] Psychiatric: Denies depression or anxiety. [] Heart Score: Risk Factors: Risk Factors: DM, Current or recent (<one month) smoker, HTN, HLP, family history of CAD, obesity. Risk Scores: Score 0 - 3: 2.5% MACE over next 6 weeks - Discharge Home Score 4 - 6: 20.3% MACE over next 6 weeks - Admit for Clinical Observation Score 7 - 10: 72.7% MACE over next 6 weeks - Early Invasive Strategies Current Medications: Current Medications Medications (Trade) Dose Ordered Sig/Annalisa Start Time Stop Time Status Last Admin Dose Admin Famotidine (Pepcid Vial) 20 mg 1X ONCE 01/26/20 06:45 01/26/20 06:46 DC Morphine Sulfate (Morphine Sulfate) 4 mg 1X ONCE 01/26/20 06:45 01/26/20 06:46 DC Multi-Ingredient Mouthwash/Gargle (Gi Cocktail) 20 ml 1X ONCE 01/26/20 06:45 01/26/20 06:46 DC Ondansetron HCl (Zofran) 4 mg 1X ONCE 01/26/20 06:45 01/26/20 06:46 DC Allergies: Allergies: Allergies Coded Allergies Type Severity Reaction Last Updated Verified No Known Drug Allergies 08/12/18 No Physical Exam: PE: Constitutional: Well developed, well nourished, no acute distress, non-toxic appearance. [] HENT: Normocephalic, atraumatic, bilateral external ears normal, oropharynx moist, no oral exudates, nose normal. [] Eyes: PERRLA, EOMI, conjunctiva normal, no discharge. [] Neck: Normal range of motion, no tenderness, supple, no stridor. [] Cardiovascular:Heart rate regular rhythm, no murmur [] Lungs & Thorax: Bilateral breath sounds clear to auscultation [] Abdomen: Bowel sounds normal, soft, There is tenderness to palpation in epigastric area and RUQ AREA, no masses, no pulsatile masses. [] Skin: Warm, dry, no erythema, no rash. [] Back: No tenderness, no CVA tenderness. [] Extremities: No tenderness, no cyanosis, no clubbing, ROM intact, no edema. [] Neurologic: Alert and oriented X 3, normal motor function, normal sensory function, no focal deficits noted. [] Psychologic: Affect normal, judgement normal, mood normal. [] Current Patient Data: Labs: Laboratory Tests Test 01/26/20 06:15 POC Urine HCG, Qualitative Hcg negative (Negative) Vital Signs: Vital Signs Date Time Temp Pulse Resp B/P (MAP) Pulse Ox O2 Delivery O2 Flow Rate FiO2 01/26/20 06:15 98.4 106 24 226/94 (138) 99 Room Air 98.4 EKG: EKG: [] Radiology/Procedures: Radiology/Procedures: [][facility] [address] [place] [address] IMAGING REPORT Signed PATIENT: LAZARO FOWLER LACCOUNT: [id number] : 1965 LOCATION: ER AGE: 54 SEX: F EXAM STATUS: REG ER ORD. PHYSICIAN: LUCERO VERAS DO REASON: RUQ PAIN PROCEDURE: ABDOMEN LTD Limited abdominal ultrasound. INDICATION: Right upper quadrant abdominal pain TECHNIQUE: Grayscale and color Doppler imaging of the right upper quadrant abdomen was performed FINDINGS: Liver is normal measuring 14 cm in craniocaudal length. The gallbladder is absent. Common duct postcholecystectomy measures 7.7 mm. The visualized pancreas is normal. The right kidney measures 11.4 x 5.2 x 6.0 cm and contains a 1 cm cyst at the superior pole. No ascites in Neri's pouch. The visualized IVC is normal. IMPRESSION: Mild postcholecystectomy common duct distention to 7.7 mm, with no sonographic evidence of choledocholithiasis. Otherwise unremarkable right upper quadrant abdominal ultrasound. Electronically signed by: Hétcor Delgado MD (01/26/2020 7:43 AM) [id number] DICTATED and SIGNED BY: HÉCTOR DELGADO MD DATE: 01/26/20 0743 Course & Med Decision Making: Course & Med Decision Making Pertinent Labs and Imaging studies reviewed. (See chart for details) Patient is a 54-year-old female who was evaluated in ER due to right upper quadrant epigastric abdominal pain been going on for a while, her lab work was normal, she had a CT scan of the abdomen and pelvis recently did not show any acute problem. Ultrasound of her abdomen today did not show any acute problem. It is suspect that patient had some form of gastritis or stomach problem, patient will be put on PPI and Carafate, he is she will need to follow-up with a GI specialist for outpatient evaluation with an EGD . Patient is amenable to plan of care. Dragon Disclaimer: Dragon Disclaimer: This electronic medical record was generated, in whole or in part, using a voice recognition dictation system. Departure Departure Impression: Primary Impression: Abdominal pain Additional Impression: Gastritis Disposition: 01 HOME, SELF-CARE Condition: STABLE Referrals: ANNAMARIA PARDO MD (PCP) LONDON DASH MD please call this GI specialist for outpatient evaluation next week. Patient Instructions: Gastritis, Adult Scripts Dicyclomine Hcl (DICYCLOMINE HCL) 20 Mg Tablet 1 TAB PO TID PRN for abdominal pain, #30 TAB 1 Refill Prov: LUCERO VERAS DO 01/26/20 Omeprazole Magnesium (PRILOSEC OTC) 20 Mg Tablet.dr 1 TAB PO DAILY for 30 Days, #30 TAB 0 Refills Prov: LUCERO VERAS DO 01/26/20 Sucralfate (CARAFATE) 1 Gm Tablet 1 TAB PO QID for 14 Days, #56 TAB 0 Refills Prov: LUCERO VERAS DO 01/26/20 LUCERO VERAS DO Jan 26, 2020 06:52
[2020-01-26 07:05] LABS: BASO # 0.1 x10^3/uL (0.0-0.2); BASO % 1 % (0-3); EOS # 0.3 x10^3/uL (0.0-0.7); EOS % 4 % (0-3); HEMATOCRIT 42.5 % (36.0-47.0); HEMOGLOBIN 14.5 g/dL (12.0-15.5); LYMPH # 3.2 x10^3/uL (1.0-4.8); LYMPH % 42 % (24-48); MEAN CORPUSCULAR HEMOGLOBIN 28 pg (25-35); MEAN CORPUSCULAR HGB CONC 34 g/dL (31-37); MEAN CORPUSCULAR VOLUME 82 fL (79-100); MONO # 0.8 x10^3/uL (0.0-1.1); MONO % 10 % (0-9); NEUT # 3.2 x10^3/uL (1.8-7.7); NEUT % 43 % (31-73); PLATELET COUNT 306 x10^3/uL (140-400); RED BLOOD COUNT 5.21 x10^6/uL (3.50-5.40); RED CELL DISTRIBUTION WIDTH 14.1 % (11.5-14.5); WHITE BLOOD COUNT 7.5 x10^3/uL (4.0-11.0)
[2020-01-26 07:08] LABS: BILIRUBIN,URINE NEGATIVE (NEG); CLARITY,URINE CLEAR; COLOR,URINE YELLOW; NITRITE,URINE NEGATIVE (NEG); PROTEIN,URINE NEGATIVE (NEG-TRACE); UROBILINOGEN,URINE 0.2 mg/dL (0.2 mg/dL)
[2020-01-26 07:19] LABS: BACTERIA,URINE FEW /HPF (0-FEW)
[2020-01-26 07:22] VITALS: BP 141/86
[2020-01-26 07:33] LABS: CALCIUM 9.3 mg/dL (8.5-10.1); CREATININE 0.7 mg/dL (0.6-1.0); GFR 86.9; POTASSIUM 3.8 mmol/L (3.5-5.1)
[2020-01-26 07:42] LABS: ALBUMIN 4.1 g/dL (3.4-5.0); ALBUMIN/GLOBULIN RATIO 1.1 (1.0-1.7); TOTAL BILIRUBIN 0.3 mg/dL (0.2-1.0)
--- NOTE | 2020-01-26 07:46 | RAD ---
Limited abdominal ultrasound. INDICATION: Right upper quadrant abdominal pain TECHNIQUE: Grayscale and color Doppler imaging of the right upper quadrant abdomen was performed FINDINGS: Liver is normal measuring 14 cm in craniocaudal length. The gallbladder is absent. Common duct postcholecystectomy measures 7.7 mm. The visualized pancreas is normal. The right kidney measures 11.4 x 5.2 x 6.0 cm and contains a 1 cm cyst at the superior pole. No ascites in Neri's pouch. The visualized IVC is normal. IMPRESSION: Mild postcholecystectomy common duct distention to 7.7 mm, with no sonographic evidence of choledocholithiasis. Otherwise unremarkable right upper quadrant abdominal ultrasound. Electronically signed by: Edita Delgado MD (01/26/2020 7:43 AM) [id number]
[2020-01-26] MEDS ORDERED: OMEP20TA63 PO (08:29)
[2020-01-26] MEDS ORDERED: SUCR1TAB35 PO (08:29)
[2020-01-26] MEDS ORDERED: DICY20TA3 PO (08:29)
== END 2020-01-26 08:36 | disposition home or self-care (01) ==
LOC: ER 06:02
DX: K29.70 Gastritis, unspecified, without bleeding (principal); F90.9 Attention-deficit hyperactivity disorder, unspecified type; Z90.89 Acquired absence of other organs; Z90.49 Acquired absence of other specified parts of digestive tract
CPT/HCPCS: 36415; 76705; 80053; 81001; 81025; 83690; 84484; 85025; 93005; 96374; 96375; 99285; G0480; J2270; J2405; J3490